=== PATIENT | male | born 1940 | race Caucasian/White ===

== ENCOUNTER 2017-05-14 06:46 | Inpatient (IN) ==
[2017-05-13 09:53] LABS: Basophils # 0.1 10*3/uL (0.0-0.2); Basophils % 0.5 % (0.0-0.8); Eosinophils # 0.1 10*3/uL (0.0-0.87); Hematocrit 39.3 VOL% (42.0-52.0); Hemoglobin 12.5 GM/DL (14.0-18.0); Immature Granulocytes % 0.3 %; Immature Granulocytes Absolute 0.03 #; Lymphocytes # 1.4 10*3/uL (1.4-4.0); Lymphocytes % 13.3 % (21.2-54.2); Mean Corpuscular HGB Conc 31.8 GM/DL (32-36); Mean Corpuscular Hemoglobin 28 PG (27-34); Mean Corpuscular Volume 86.4 FL (87-102); Mean Platelet Volume 10.2 FL (9.6-12.0); Monocytes # 0.9 10*3/uL (0.11-0.8); Neutrophils # 8.2 10*3/uL (1.4-7.4); Neutrophils % 76.9 % (38.7-73.9); Platelet Count 322 T/CUMM (130-400); Red Blood Count 4.55 MC/CUMM (3.8-5.5); Red Cell Distribution Width 16.4 % (9.3-17.3); White Blood Count 10.6 T/CUMM (4-12)
[2017-05-13 10:31] LABS: Bilirubin,Total 0.5 MG/DL (0.2-1.0); Calcium 9.2 MG/DL (8.5-10.1); Osmolality,Calculated 276.5 MOS/KG (273-304); Potassium 4.5 MMOL/L (3.5-5.1); Total Protein 7.4 G/DL (6.4-8.3)
[2017-05-14] MEDS ORDERED: ceFAZolin 1,000 MG VIAL ONE (07:15)
[2017-05-14] MEDS ORDERED: HEPARIN 5,000 UNIT/1 ML VIAL ONE (07:56)
[2017-05-14] MEDS ORDERED: HEPARIN/NACL 0.9% 2 UNITS/ML 500 ML IV ONE (08:01)
[2017-05-14] MEDS ORDERED: HEPARIN 10,000 UNIT/10 ML VIAL ONE (08:01)
[2017-05-14] MEDS ORDERED: ETOMIDATE 40 MG/20 ML VIAL IV ONE (08:01)
[2017-05-14] MEDS ORDERED: PHENYLEPHRINE 10 MG/1 ML VIAL IV ONE ×2 (08:01)
[2017-05-14] MEDS ORDERED: PHENYLEPHRINE DRIP 20 MG/250 ML PREMIX IV ONE (08:02)
[2017-05-14] MEDS ORDERED: NITROGLYCERIN DRIP 50 MG/250 ML BOTTLE IV ONE (08:02)
[2017-05-14] MEDS ORDERED: ROCURONIUM 100 MG/10 ML VIAL IV ONE (08:02)
[2017-05-14] MEDS ORDERED: NEOSTIGMINE 10 MG/10 ML VIAL ONE (08:02)
[2017-05-14] MEDS ORDERED: GLYCOPYRROLATE 0.4 MG/2 ML VIAL ONE (08:02)
[2017-05-14] MEDS ORDERED: SCOPOLAMINE 1.5 MG PATCH TRANSDERM ONE ×2 (08:24→08:30)
[2017-05-14] MEDS ORDERED: LACTATED RINGERS 1,000 ML IV SCH (08:30)
[2017-05-14] MEDS ORDERED: NALOXONE 0.4 MG/ML VIAL IV PRN (10:11)
[2017-05-14] MEDS ORDERED: PROMETHAZINE 25 MG/1 ML VIAL IM PRN (10:11)
[2017-05-14] MEDS ORDERED: HYDROmorphone 2 MG/1 ML VIAL IV PRN (10:11)
[2017-05-14] MEDS ORDERED: DEXTROSE 50% 25 GM/50 ML VIAL IV PRN (10:11)
[2017-05-14] MEDS ORDERED: GLUCAGON 1 MG VIAL IM PRN (10:11)
[2017-05-14] MEDS ORDERED: NON-FORMULARY MEDICATION (Aspirin 81 MG) PO SCH (10:15)
[2017-05-14] MEDS ORDERED: fentaNYL 100 MCG/2 ML VIAL ONE (10:36)
[2017-05-14] MEDS ORDERED: SEVOFLURANE 1 UNIT/15 MINUTE INH ONE (10:36)
[2017-05-14] MEDS ORDERED: ePHEDrine 50 MG/ML AMP ONE (10:36)
[2017-05-14] MEDS ORDERED: DEXAMETHASONE 10 MG/1 ML VIAL ONE (10:36)
[2017-05-14] MEDS ORDERED: MIDAZOLAM 2 MG/2 ML VIAL ONE (10:36)
[2017-05-14] MEDS ORDERED: SODIUM CHLORIDE 0.9% 1,000 ML IV ONE (10:37)
[2017-05-14] MEDS ORDERED: PROTAMINE SULFATE 50 MG/5 ML VIAL IV ONE (10:37)
[2017-05-14] MEDS ORDERED: SODIUM CHLORIDE 0.9% 250 ML IV ONE (10:37)
[2017-05-14 12:13] LABS: Apearance,Urine CLEAR (Clear); Bilirubin,Urine Negative (Negative); Blood, Urine Negative (Negative); Glucose,Urine (UA) Negative (Negative); Ketones,Urine Negative (Negative); Mucus,Urine Occasional /LPF (Occasional); Nitrite,Urine Negative (Negative); Protein,Urine Negative; Urine Color Straw (Yellow); Urine Specific Gravity 1.008 (1.001-1.035); Urine Urobilinogen < 2.0 EU/DL (0.2-1.0)
[2017-05-14] MEDS: LACTATED RINGERS 1,000 ML IV SCH ×2 (14:20→21:34)
[2017-05-14] MEDS: PHENYLEPHRINE DRIP 40 MG/250 ML PREMIX IV SCH (14:21)
[2017-05-14] MEDS: NITROPRUSSIDE 100 MG in DEXTROSE 5% 250 ML IV SCH (14:21)
[2017-05-14] MEDS: ASPIRIN EC 81 MG TABLET PO SCH (14:23)
[2017-05-14] MEDS: CLOPIDOGREL 75 MG TABLET PO SCH (14:23)
[2017-05-14] MEDS: oxyCODONE/ACETAMINOPHEN 5-325 MG TABLET PO PRN ×3 (15:47→23:20)
[2017-05-14] MEDS: TAMSULOSIN 0.4 MG CAPSULE PO SCH (20:35)
[2017-05-14] MEDS: HYDROmorphone 2 MG/1 ML VIAL IV PRN (20:35)
[2017-05-14] MEDS: ONDANSETRON 4 MG/2 ML VIAL IV PRN (20:37)
[2017-05-15] MEDS: LACTATED RINGERS 1,000 ML IV SCH ×2 (00:24→07:14)
[2017-05-15] MEDS: HYDROmorphone 2 MG/1 ML VIAL IV PRN (01:41)
[2017-05-15] MEDS: ONDANSETRON 4 MG/2 ML VIAL IV PRN (01:42)
[2017-05-15] MEDS: CLOPIDOGREL 75 MG TABLET PO SCH (08:57)
[2017-05-15] MEDS: ATORVASTATIN 40 MG TABLET PO SCH (08:57)
[2017-05-15] MEDS: TAMSULOSIN 0.4 MG CAPSULE PO SCH ×2 (08:57→21:15)
[2017-05-15] MEDS: ASPIRIN EC 81 MG TABLET PO SCH (08:57)
[2017-05-15] MEDS: PHENYLEPHRINE DRIP 40 MG/250 ML PREMIX IV SCH (10:31)
[2017-05-15] MEDS: NITROPRUSSIDE 100 MG in DEXTROSE 5% 250 ML IV SCH (10:46)
[2017-05-15] MEDS: oxyCODONE/ACETAMINOPHEN 5-325 MG TABLET PO PRN (21:14)
[2017-05-16 07:00] VITALS: BP 140/66
[2017-05-16] MEDS: TAMSULOSIN 0.4 MG CAPSULE PO SCH (09:33)
[2017-05-16] MEDS: ATORVASTATIN 40 MG TABLET PO SCH (09:33)
[2017-05-16] MEDS: CLOPIDOGREL 75 MG TABLET PO SCH (09:33)
[2017-05-16] MEDS: ASPIRIN EC 81 MG TABLET PO SCH (09:33)
== END 2017-05-16 10:35 | disposition home or self-care (01) | DRG 39 ==
LOC: N.OR 06:46 → N.SDSINP 06:48 → N.ICU 07:27 → N.SDSINP 07:35 → N.ICU 10:12 → N.3E 05-15 17:21
PROVIDERS: ADMIT Surgery; ATTEND Surgery